=== PATIENT | female | born 1975 | race American Indian/Alaskan Native ===

== ENCOUNTER 2017-02-23 13:25 | Outpatient (CLI) | payer OTHER ==
--- NOTE | 2017-02-24 16:15 | Magnetic Resonance Report ---
BILATERAL BREAST MRI WITHOUT AND WITH CONTRAST: 02/23/17 13:25:00 CLINICAL: Left breast mass. COMPARISON:ILYA bilateral mammogram and left breast ultrasound 02/15/17. TECHNIQUE: Axial 1.0-mm T1 without, axial high resolution 2.0-mm T2 and axial 1.0-mm dynamic Vibrant high-resolution postcontrast T1 fat saturation sequences on a 1.5 Xiao magnet. The examination was performed with an 8 channel dedicated Sentinelle breast coil. Post processing with CAD and subtraction was performed on an kajeet workstation. 14.0 cc of Multihance was injected without incident via a right antecubital vein 22-gauge INT for the contrast portion of the exam. Consent was obtained prior to the administration of the contrast. FINDINGS: Right: Moderate background parenchymal enhancement. Segmental heterogeneous non-Mass enhancement of the upper-outer quadrant at 10 o'clock 12.3 cm from the nipple measures 6.3 cm AP dimension by 2.6 cm transverse dimension by 3.5 cm craniocaudal dimension. It demonstrates heterogeneous enhancement with mixed kinetics, 134% peak enhancement, 70% type I persistent, 29% type II plateau and 1% type III washout enhancement. No other abnormal enhancement and no mass of the right breast. No suspicious right axillary or right internal mammary lymph nodes. Left: Moderate background peripheral enhancement. No mass or suspicious enhancement of the left breast. No suspicious left axillary or left internal mammary lymph nodes. IMPRESSION: Segmental non-Mass enhancement of the upper-outer quadrant of the right breast is mildly suspicious for malignancy. The enhancement kinetics favor a benign lesion but this relatively large area of segmental non-Mass enhancement has a pattern that is distinctly different from the rest of the right breast and the left breast. Recommend an MRI guided needle biopsy of the right breast to exclude malignancy. Negative left breast with no MRI findings to correlate with mammographic and sonographic findings. No suspicious lymph nodes. RIGHT BI-RADS 4 -- Suspicious LEFT BI-RADS 1 -- Negative
== END 2017-02-23 13:26 | disposition home or self-care (01) ==
LOC: SPVIMAG 13:25
PROVIDERS: ATTEND Internal Medicine Hematology & Oncology
DX: N63.0 Unspecified lump in unspecified breast (principal); D72.9 Disorder of white blood cells, unspecified
CPT/HCPCS: A9577; C8908; 77059

== ENCOUNTER 2017-03-09 08:48 | Outpatient (CLI) | payer OTHER ==
--- NOTE | 2017-03-09 11:48 | Magnetic Resonance Report ---
MRI GUIDED VACUUM ASSISTED CORE BIOPSY RIGHT BREAST: 03/09/17 08:48:00 CLINICAL: Asymmetric non-Mass enhancement right breast. COMPARISON: 02/23/17 FINDINGS: Consent for the procedure was obtained. A Vibrant dynamic postcontrast series was performed on a 1.5 Xiao magnet using an 8 channel Sentinelle dedicated breast coil. The previous described lesion was localized and targeted using [employer] Sentinelle biopsy software. The skin was anesthetized with 1% lidocaine and a small dermatotomy was made. 2% lidocaine was administered for deeper anesthesia. 9-G biopsy was performed with an Senexx vacuum assisted device. Imaging demonstrated satisfactory positioning of the probe and samples were obtained. A clip was placed after confirmation of adequate sampling. The probe was removed and hemostasis was achieved with pressure to the site. A sterile dressing was applied. The patient tolerated the procedure well and there were no apparent complications. A two view mammogram demonstrated concordant clip placement. The patient left the department in good condition with instructions for wound care and follow-up. IMPRESSION: Uncomplicated MRI biopsy with clip placement right breast.
--- NOTE | 2017-03-09 11:50 | Mammography Report ---
RIGHT DIGITAL DIAGNOSTIC MAMMOGRAM: 03/09/17 08:48:00 CLINICAL: For clip placement immediately status post MRI biopsy of segmental non-Mass enhancement. COMPARISON:12/26/14 FINDINGS: A biopsy clip is now identified in the upper outer quadrant. No mass, architectural distortion or suspicious calcifications. IMPRESSION: Concordant clip placement status post MRI biopsy.No mammographic correlate for the MRI finding. BI-RADS CATEGORY: 4--Suspicious Pathology pending.
== END 2017-03-09 08:49 | disposition home or self-care (01) ==
LOC: SPVIMAG 08:48
PROVIDERS: ATTEND Internal Medicine Hematology & Oncology
DX: D24.1 Benign neoplasm of right breast (principal)
CPT/HCPCS: 19085; 77065; 88305; A4648; A9577

== ENCOUNTER 2017-03-28 08:38 | Outpatient (CLI) | payer OTHER ==
--- NOTE | 2017-03-29 14:11 | Ultrasound Report ---
LEFT BREAST ULTRASOUND: 03/28/17 08:38:00 CLINICAL: A 1.5 x 1.3 cm hypoechoic mass at 11 o'clock 7 centimeters from the nipple identified on a 02/15/17 [facility] ultrasound. I do not have those images. However, 02/23/17 MRI of the left breast was negative. COMPARISON: 02/23/17 MRI Breast. FINDINGS: Ultrasound of the upper inner left breast was performed and fail to demonstrate a mass at 11 o'clock 7 cm from the nipple to correlate with the previous described mass. However, I identified a spiculated hypoechoic mass at 10 o'clock 6 cm from the nipple measuring approximately 8 x 8 mm. It is identified at a Riccardo's ligament. IMPRESSION: 8mm suspicious mass with shadowing at 10 o'clock 6 cm from the nipple. Recommend ultrasound guided needle biopsy. BI-RADS 4--Suspicious I discussed the findings and the recommendation for needle core biopsy with the patient and with Dr. Rueda at the time of the examination.
== END 2017-03-28 08:39 | disposition home or self-care (01) ==
LOC: SPVWC 08:38
PROVIDERS: ATTEND Surgery
DX: N63.20 Unspecified lump in the left breast, unspecified quadrant (principal); R92.8 Other abnormal and inconclusive findings on diagnostic imaging of breast; R59.0 Localized enlarged lymph nodes; Z80.3 Family history of malignant neoplasm of breast

== ENCOUNTER 2017-04-06 12:31 | Outpatient (CLI) | payer OTHER ==
--- NOTE | 2017-04-06 14:32 | Mammography Report ---
LEFT DIGITAL DIAGNOSTIC MAMMOGRAM: 04/06/17 12:31:00 CLINICAL: For clip placement immediately status post ultrasound biopsy. COMPARISON:No recent left mammogram. FINDINGS: A biopsy clip is now identified at 11 o'clock approximately 7 cm from the nipple. IMPRESSION: Concordant clip placement status post ultrasound biopsy. BI-RADS CATEGORY: 4--Suspicious Pathology pending.
--- NOTE | 2017-04-06 15:09 | Ultrasound Report ---
VACUUM ASSISTED ULTRASOUND GUIDED NEEDLE CORE BIOPSY WITH CLIP PLACEMENT : 04/06/17 12:31:00 CLINICAL: Suspicious shadowing mass in 11 o'clock 7 cm from the nipple. COMPARISON :03/28/17 FINDINGS: The procedure was explained to the patient and informed consent was obtained. Ultrasound demonstrated the previously described shadowing associated with a small irregular hypoechoic mass at 11 o'clock 7 cm from the nipple. The skin was prepped with Betadine and anesthetized with 1% lidocaine. Vacuum-assisted needle core biopsy was performed through a small dermatotomy using ultrasound guidance, 2% lidocaine with epinephrine for deep anesthesia and a 10-gauge Mammotome biopsy probe. Multiple cores were obtained and placed in formalin. A localizer clip was deployed within the lesion after the biopsy. Hemostasis was achieved with minimal pressure and a sterile dressing was applied. The patient tolerated the procedure well and there were no apparent complications. A two view mammogram demonstrated concordant clip placement. The patient left the department in good condition with instructions for wound care and follow up. IMPRESSION: Uncomplicated vacuum-assisted ultrasound core biopsy and clip placement left breast.
== END 2017-04-06 12:32 | disposition home or self-care (01) ==
LOC: SPVWC 12:31
PROVIDERS: ATTEND Surgery
DX: N64.89 Other specified disorders of breast (principal); Z88.8 Allergy status to other drugs, medicaments and biological substances
CPT/HCPCS: 88305

== ENCOUNTER 2017-09-04 13:57 | Outpatient (CLI) | payer OTHER ==
--- NOTE | 2017-09-08 16:04 | Magnetic Resonance Report ---
BILATERAL BREAST MRI WITHOUT AND WITH CONTRAST: 09/04/17 13:57:00 CLINICAL: Followup after benign MRI biopsy of the right breast for non-Mass enhancement 03/09/17 and after ultrasound-guided biopsy of a left breast mass at 11 o'clock 7 cm from the nipple on 04/06/17. COMPARISON:02/23/17 MRI. TECHNIQUE: Axial 1.0-mm T1 without, axial high resolution 2.0-mm T2 and axial 1.0-mm dynamic Vibrant high-resolution postcontrast T1 fat saturation sequences on a 1.5 Xiao magnet. The examination was performed with an 8 channel dedicated Sentinelle breast coil. Post processing with CAD and subtraction was performed on an [employer] workstation. 20 cc of Multihance was injected without incident for the contrast portion of the exam. Consent was obtained prior to the administration of the contrast. FINDINGS: Right: Moderate background parenchymal enhancement with an overall decreased degree of enhancement compared to the prior exam. Segmental heterogeneous non-mass enhancement of the upper outer quadrant is also decreased and the overall kinetic pattern is less worrisome with a predominance of type I persistent and type II plateau kinetics. No mass or suspicious enhancement. No suspicious lymph nodes. Left: Moderate background parenchymal enhancement with an overall decrease in degree of enhancement compared to the prior exam. Linear non-Mass enhancement in the lower inner quadrant 4.9 cm from the nipple at 5 o'clock measures 19.0 x 6.5 x 3.2 mm. It demonstrates heterogeneous enhancement with mixed kinetics, 369% peak enhancement, 54% type I persistent, 39% type II plateau and 7% type III washout waveforms. No other suspicious lesions are identified. No suspicious lymph nodes IMPRESSION: 1. Overall decreased parenchymal enhancement in both breasts with an overall pattern of less sinister kinetics compared to the previous exam. The previously biopsied right non-Mass enhancement is less prominent and now consider it to be normal asymmetric parenchymal enhancement. 2. Suspicious linear non-Mass enhancement of the left breast at 5 o'clock 5 cm from the nipple. Recommend MRI guided needle biopsy of the left breast. RIGHT BI-RADS 2 -- Benign LEFT BI-RADS 4 -- suspicious
== END 2017-09-04 13:58 | disposition home or self-care (01) ==
LOC: SPVIMAG 13:57
PROVIDERS: ATTEND Surgery
DX: R92.8 Other abnormal and inconclusive findings on diagnostic imaging of breast (principal); R59.0 Localized enlarged lymph nodes
CPT/HCPCS: A9577; C8908; 77059